=== PATIENT | female | born 1990 | race Caucasian/White ===

== ENCOUNTER 2022-12-23 09:42 | Emergency (ER) | payer OTHER ==
[~2022-12-23] VITALS: Ht 152.4 cm; Wt 86.0 kg
[2022-12-23] VITALS (7 sets, daily range): BP systolic 102–127; BP diastolic 41–79
[2022-12-23] MEDS ORDERED: PRENATA3 PO (10:08)
[2022-12-23 10:33] LABS: BASO% 0.2 % (0-3); HEMATOCRIT 35.2 % (37.0-47.0); HEMOGLOBIN 11.5 g/dl (12.0-16.0); IMMATURE GRANULOCYTES 0.2 % (0.0-5.0); LYMPH% 23.1 % (15-41); MEAN CELL VOLUME 94.4 fL CALC (80.0-100.0); MEAN CORPUSCULAR HGB 30.8 pG CALC (26.0-32.0); MEAN CORPUSCULAR HGB CONC 32.7 g/dL CAL (32.0-36.0); MONO% 6.6 % (2-13); NEUT# 6.1 thou/uL (2.00-7.15); NEUT% 66.9 % (42-76); RED BLOOD COUNT 3.73 mill/uL (4.20-5.60); RED CELL DISTRI WIDTH 12.9 % (11.5-15.5)
[2022-12-23 10:40] LABS: ALBUMIN 3.5 g/dL (3.2-5.0); ALKALINE PHOSPHATASE 97 u/l (38-126); ANION GAP 11 (6-22 (CALC)); BILIRUBIN, TOTAL 0.1 mg/dL (0.02-1.3); BUN 10 mg/dL (7-17); BUN/CREATININE RATIO 16 (12-20 (CALC)); CARBON DIOXIDE 20 mmol/l (22-30); CHLORIDE 108 mmol/l (95-108); CREATININE 0.7 mg/dL (0.5-1.0); GFR FOR AFR.AMER. > 60 ML/MIN (>=60 (CALC)); GFR OTHER RACES > 60 ML/MIN (>=60 (CALC)); POTASSIUM 4.1 mmol/l (3.5-5.1); SGOT/AST 26 u/l (14-36); SODIUM 135 mmol/l (137-146); TOTAL PROTEIN 6.4 g/dL (6.3-8.2)
== END 2022-12-23 13:03 | disposition left against medical advice (07) | DRG 923 ==
LOC: ED 09:42
PROVIDERS: Family Medicine
DX: Z04.1 Encounter for examination and observation following transport accident (principal); O26.893 Other specified pregnancy related conditions, third trimester; R10.84 Generalized abdominal pain; Z3A.32 32 weeks gestation of pregnancy; Z53.29 Procedure and treatment not carried out because of patient's decision for other reasons